=== PATIENT | female | born 1995 | race African-American/Black ===

== ENCOUNTER 2024-06-18 12:55 | Emergency (ER) | payer MEDICAID ==
[~2024-06-18] VITALS: Ht 160 cm; Wt 99.8 kg
[2024-06-18 13:00] VITALS: O2SAT 100
[2024-06-18 13:04] VITALS: BP 122/62; PULSE 82; RESP 18; TEMP 36.66960; O2SAT 100
[2024-06-18 13:39] LABS: BASOPHILS % 0.6 % (0.0-2.0); EOSINOPHILS % 1.2 % (0.0-5.0); MEAN CORPUSCULAR HGB CONC 32.5 g/dL (31.0-37.0); MEAN CORPUSCULAR VOLUME 83.1 fL (81.0-99.0); MEAN PLATELET VOLUME 8.4 fl (7.4-10.4); MONOCYTES % 5.5 % (2.0-8.0); NEUTROPHILS % 61.7 % (40.0-76.0); PLATELET 375 x1000/uL (130-400); RED BLOOD CELL COUNT 4.09 mill/uL (4.2-5.4); RED CELL DISTRIBUTION WIDTH 13.6 % (11.6-14.6); WHITE BLOOD COUNT 11.6 x1000/uL (4.5-11.0)
[2024-06-18 13:47] LABS: CARBON DIOXIDE 24 mEq/L (21-32); CHLORIDE 108 mEq/L (98-107); POTASSIUM 3.6 mEq/L (3.5-5.1); SODIUM 138 mEq/L (136-145)
[2024-06-18 13:48] LABS: CALCIUM 9.5 mg/dL (8.7-10.4)
[2024-06-18 13:53] LABS: CREATININE 0.8 mg/dL (0.6-1.0); GLUCOSE 86 mg/dL (70-105); UREA NITROGEN BLOOD 5 mg/dL (9-23)
[2024-06-18 14:07] LABS: B-HCG QUANTITATIVE 103517 mIU/mL (<3)
[2024-06-18 14:08] LABS: CLARITY URINE CLEAR (CLEAR); COLOR URINE DARK YELLOW (YELLOW); GLUCOSE URINE NEGATIVE (NEGATIVE); KETONES URINE NEGATIVE (NEGATIVE); LEUKOCYTE ESTERASE URINE TRACE (NEGATIVE); NITRITE URINE NEGATIVE (NEGATIVE); OCCULT BLOOD URINE NEGATIVE (NEGATIVE); PROTEIN URINE NEGATIVE (NEGATIVE); SPECIFIC GRAVITY URINE 1.026 (1.005-1.030)
[2024-06-18 14:36] LABS: MUCUS URINE 1+ /lpf (< = 2+); SQUAMOUS EPITHELIAL CELL URINE 3+ /lpf (RARE/1+)
[2024-06-18 14:37] LABS: BACTERIA URINE 1+; RBC URINE 0-2 /hpf (0-2)
[2024-06-18] MEDS ORDERED: CEPH500C2 MT (15:04)
== END 2024-06-18 15:25 | disposition home or self-care (01) ==
LOC: ER 12:55
DX: O03.9 Complete or unspecified spontaneous abortion without complication (principal); O26.891 Other specified pregnancy related conditions, first trimester; R11.0 Nausea; Z3A.08 8 weeks gestation of pregnancy
CPT/HCPCS: 36415; 76801; 80048; 81003; 81025; 84702; 85025; 86850; 86900; 99284